=== PATIENT | female | born 1980 | race African-American/Black ===

== ENCOUNTER 2025-02-09 18:15 | Emergency (ER) | payer MEDICAID ==
[~2025-02-09] VITALS: Ht 180.3 cm; Wt 89.0 kg
[2025-02-09 18:18] VITALS: O2SAT 97
[2025-02-09 19:08] VITALS: BP 134/92; PULSE 82; RESP 16; TEMP 37.1; O2SAT 98
[2025-02-09 20:42] LABS: BASOPHILS % 0.3 % (0.0-2.0); EOSINOPHILS % 1.0 % (0.0-5.0); HEMATOCRIT. 37.1 % (36.0-48.0); HEMOGLOBIN. 11.8 g/dL (12.0-16.0); LYMPHOCYTES % 29.7 % (20.0-50.0); MEAN PLATELET VOLUME 9.5 fl (7.4-10.4); MONOCYTES % 7.5 % (2.0-8.0); NEUTROPHILS % 61.5 % (40.0-76.0); PLATELET 206 x1000/uL (130-400); RED BLOOD CELL COUNT 4.14 mill/uL (4.2-5.4); RED CELL DISTRIBUTION WIDTH 13.3 % (11.6-14.6)
[2025-02-09 21:00] LABS: CREATININE 0.8 mg/dL (0.6-1.0); UREA NITROGEN BLOOD 9 mg/dL (9-23)
== END 2025-02-09 20:27 | disposition left against medical advice (07) ==
LOC: ER 18:15
DX: R32 Unspecified urinary incontinence (principal)
CPT/HCPCS: 36415; 80048; 85025; 99283